=== PATIENT | female | born 1960 | race Hispanic/Latino ===

== ENCOUNTER 2021-04-03 04:30 | Emergency (ER) | payer OTHER ==
[~2021-04-03] VITALS: Ht 152.4 cm; Wt 63.0 kg
[2021-04-03] MEDS ORDERED: KETOROLAC TROMETHAMINE 30 MG/ML VIAL IV STA (04:49)
[2021-04-03] MEDS ORDERED: HYDROMORPHONE 1MG/1ML INJ IV STA (04:49)
[2021-04-03] MEDS ORDERED: SODIUM CHLORIDE 0.9% 1000ML 1,000 ML IV STA (04:49)
[2021-04-03] MEDS ORDERED: ONDANSETRON HCL INJ 2MG/ML 2ML 2 MG/ML VIAL IV STA (04:49)
[2021-04-03] MEDS ORDERED: ONDANSETRON HCL INJ 2MG/ML 2ML 2 MG/ML VIAL ONE (05:17)
[2021-04-03] MEDS ORDERED: KETOROLAC TROMETHAMINE 30 MG/ML VIAL ONE (05:17)
[2021-04-03] MEDS ORDERED: SODIUM CHLORIDE 0.9% 1000ML 1,000 ML ONE (05:17)
[2021-04-03] MEDS ORDERED: ONDANSETRON ODT4 MG PO (06:50)
[2021-04-03] MEDS ORDERED: DICYCLOMINE HCL20 MG PO (06:50)
[2021-04-03 06:59] VITALS: BP 159/74
== END 2021-04-03 06:59 | disposition home or self-care (01) ==
LOC: FSED 04:50
DX: K80.20 Calculus of gallbladder without cholecystitis without obstruction (principal); Z90.49 Acquired absence of other specified parts of digestive tract
CPT/HCPCS: 76705; 80053; 81003; 85025; 96374; 96376; 99284; J1170; J1885; J2405; J7030